=== PATIENT | male | born 1990 | race Two or more races ===

== ENCOUNTER → 2016-08-21 | Outpatient (CLI) | payer OTHER ==
--- NOTE | ~2016-08-21 | MR18 ---
[facility] A Service of [facility] & [facility] RADIOLOGY TEXT RESULTS PATIENT: FINN ALLEN LOCATION: [facility] : 90 UNIT #: [id number] AGE: [address]: Rajat Victoria MD SEX: M ORDER DR: [id number] [facility] [address] [place], [place] [address] [id number] O MR#: [id number] Acc #: [id number] NAME: FINN ALLEN : 1990 SEX: M STUDY DATE/TIME: 08/21/2016 16:42 UNIT: [facility] ROOM: STUDY DESCRIPTION: MR Brain Wo Contrast Attending Physician: Rajat Martinez M.D. Referring Physician: Rajat Martinez M.D. Ordering Physician: Rajat Martinez M.D. Primary Care Physician: Rajat Martinez M.D. MRI CENTER REPORT This report is preliminary unless electronic signature is present. EXAM Unenhanced brain MRI, 08/21/2016 PROCEDURE Routine unenhanced brain MRI COMPARISON None CLINICAL HISTORY Left face, lips and left arm numbness for 8-10 years with more recent episodes of dizziness and headache with visual disturbance. FINDINGS There is no MR evidence of acute ischemia or other restricted diffusion. The brain is structurally normal. Normal flow voids are seen in the cerebral vessels and bone marrow signal is normal. There is no intracranial hemorrhage or mass. There is no hydrocephalus. There is a right supracerebellar arachnoid cyst about 1.7 x 1.3 x 1.4 cm in size, but otherwise there is no extraaxial fluid collection. Normal flow voids are seen in the cerebral vessels. The extracranial soft tissues are unremarkable. IMPRESSION Right supracerebellar arachnoid cyst, small, with overall negligible mass effect, otherwise normal unenhanced brain MRI. Dictated by... Philippe Hyde M.D. THIS IS AN ELECTRONICALLY VERIFIED REPORT Philippe Hyde M.D. at 09/03/2016 10:40 AM TEV/jw STS. [facility] A Service of [facility] & [facility] RADIOLOGY TEXT RESULTS PATIENT: FINN ALLEN [facility] UNIT #: [id number] AGE: [address]: Rajat Victoria MD SEX: M ORDER DR: TD: 08/27/2016 13:20 JOB #: [id number] MRI CENTER REPORT Page 1 of 1 COPY
== END | disposition home or self-care (01) ==
LOC: CMRI 08-19 14:00
DX: R20.0 Anesthesia of skin (principal); G93.0 Cerebral cysts
CPT/HCPCS: 70551